=== PATIENT | female | born 1975 | race African-American/Black ===

== ENCOUNTER → 2017-06-21 | Outpatient (REF) | payer OTHER | LOC: M LAB REF 16:09 | PROVIDERS: ATTEND Nurse Practitioner Family | DX: D23.5 Other benign neoplasm of skin of trunk (principal) ==

== ENCOUNTER → 2018-09-26 | Outpatient (CLI) | payer OTHER | LOC: M RAD 10:01 | DX: R92.2 Inconclusive mammogram (principal) | CPT/HCPCS: 77067 ==